=== PATIENT | male | born 1980 | race Caucasian/White ===

== ENCOUNTER 2016-04-24 11:56 | Inpatient (IN) | payer BC, OTHER ==
[~2016-04-24] VITALS: Ht 165.1 cm; Wt 91.0 kg
[2016-04-24] MEDS ORDERED: ONDANSETRON HCL 4 MG/2 ML VIAL ONE (13:04)
[2016-04-24] MEDS ORDERED: ONDANSETRON HCL 4 MG/2 ML VIAL IV ONE (13:30)
[2016-04-24] MEDS ORDERED: SODIUM CHLORIDE 0.9% 1,000 ML IVB ONE (13:34)
[2016-04-24 13:55] LABS: Basophils # (auto) 0 uL; Basophils % (auto) 0.1 % (0.0-2.0); Eosinophils # (auto) 0 uL; Eosinophils % (auto) 0.1 % (0.0-7.0); Hematocrit 42.7 % (41.0-53.0); Hemoglobin 13.7 g/dL (13.5-17.5); Lymphocytes # (auto) 0.9 uL; Lymphocytes % (auto) 5.5 % (10.0-50.0); Mean Corpuscular Hemoglobin 27.6 pg (28.0-32.0); Mean Corpuscular Hgb Conc. 32.2 g/dL (32.0-36.0); Mean Corpuscular Volume 85.7 fL (80.0-100.0); Monocytes # (auto) 0.6 uL; Monocytes % (auto) 3.5 % (0.0-12.0); Neutrophils # (auto) 15.2 uL; Neutrophils % (auto) 90.8 % (37.0-80.0); Platelet Count (auto) 337 10^3/uL (140-450); White Blood Cell 16.8 10^3/uL (4.4-10.8)
[2016-04-24] MEDS ORDERED: DIVA250T51 PO (14:04)
[2016-04-24] MEDS ORDERED: FLUO60TA PO (14:05)
[2016-04-24] MEDS ORDERED: PRE5T PO (14:05)
[2016-04-24] MEDS ORDERED: LOR05T PO (14:06)
[2016-04-24] MEDS ORDERED: ROPI1TAB22 PO (14:07)
[2016-04-24] MEDS ORDERED: GABA300C8 PO (14:07)
[2016-04-24] MEDS ORDERED: ATOR40TA52 PO (14:08)
[2016-04-24] MEDS ORDERED: BACL10TA PO (14:09)
[2016-04-24] MEDS ORDERED: INSU1INJ14 SC (14:10)
[2016-04-24] MEDS ORDERED: INSLISPI SC (14:10)
[2016-04-24 14:25] LABS: Albumin 3.7 g/dL (3.4-5.0); BUN/Creatinine Ratio 17.1; Bilirubin, Total 0.3 mg/dL (0.2-1.0); Calcium 8.6 mg/dL (8.5-10.1); Potassium 4.4 mmol/L (3.5-5.1); Total Protein 7.4 g/dL (6.4-8.2)
[2016-04-24] MEDS ORDERED: LACTULOSE 20Gm/30ML SOLN PO PRN (16:30)
[2016-04-24] MEDS ORDERED: ACETAMINOPHEN 500 MG TAB PO PRN (16:30)
[2016-04-24] MEDS ORDERED: TEMAZEPAM 15 MG CAP PO PRN (16:30)
[2016-04-24] MEDS ORDERED: LORazepam 0.5 MG TAB PO PRN ×2 (16:30→17:00)
[2016-04-24] MEDS ORDERED: DEXTROSE (50%) 50ML SYRG IV PRN (16:30)
[2016-04-24] MEDS ORDERED: NITROGLYCERIN 0.4 MG SL TAB SL PRN (16:30)
[2016-04-24] MEDS ORDERED: MORPHINE SULF INJ 2 MG/ML SYRINGE 1ML IV PRN ×2 (16:30)
[2016-04-24] MEDS ORDERED: PROMETHAZINE HCL 25 MG/ML 1ML IV PRN (16:30)
[2016-04-24] MEDS ORDERED: LORazepam 2MG/ML-1ML VIAL IV PRN (16:30)
[2016-04-24] MEDS ORDERED: ALBUTEROL SULF 2.5 MG/0.5ML(0.5%) NEB SOLN NEB PRN (17:00)
[2016-04-24] MEDS ORDERED: LEVOFLOXACIN 500MG 100 ML IV ONE (17:00)
[2016-04-24] MEDS ORDERED: BACLOFEN 10 MG TAB PO PRN (17:00)
[2016-04-24] MEDS: ACCU-CHEK COMFORT CURVE STRIP VI SCH ×2 (17:27→22:00)
[2016-04-24] MEDS: InsuLIN REG 1unit/0.01ml Soln (100units/ml) SC SCH ×2 (17:27→22:00)
[2016-04-24] MEDS: SODIUM CHLORIDE 0.9% 1,000 ML IV SCH (17:30)
[2016-04-24] MEDS ORDERED: ROPINIROLE 1 MG PO SCH (18:00)
[2016-04-24] MEDS: ALBUTEROL SULF 2.5 MG/0.5ML(0.5%) NEB SOLN NEB SCH (19:50)
[2016-04-24] MEDS: HYDROcodone-ACET 5/325MG TAB PO PRN ×2 (19:58→20:01)
[2016-04-24 22:00] VITALS: BP 113/60
[2016-04-24] MEDS ORDERED: ATORVASTATIN 20 MG TAB PO SCH (22:00)
[2016-04-24] MEDS ORDERED: PRAMIPEXOLE DIHYDROCHLORIDE MO 0.25 MG TAB PO SCH (22:00)
[2016-04-24 22:33] VITALS: BP 121/81
[2016-04-24] MEDS: GABAPENTIN 300 MG CAP PO SCH (22:39)
[2016-04-25] MEDS: ALBUTEROL SULF 2.5 MG/0.5ML(0.5%) NEB SOLN NEB SCH ×3 (00:13→11:31)
[2016-04-25 00:25] VITALS: BP 121/81
[2016-04-25] MEDS ORDERED: VARD10TA PO (01:56)
[2016-04-25] MEDS ORDERED: DIVA500T59 PO (01:56)
[2016-04-25 04:30] VITALS: BP 109/46
[2016-04-25 05:58] LABS: Basophils # (auto) 0 uL; Basophils % (auto) 0.2 % (0.0-2.0); Eosinophils # (auto) 0 uL; Eosinophils % (auto) 0.1 % (0.0-7.0); Hematocrit 35.9 % (41.0-53.0); Hemoglobin 11.9 g/dL (13.5-17.5); Lymphocytes # (auto) 1.8 uL; Lymphocytes % (auto) 13.8 % (10.0-50.0); Mean Corpuscular Hemoglobin 28.2 pg (28.0-32.0); Mean Corpuscular Hgb Conc. 33.1 g/dL (32.0-36.0); Mean Corpuscular Volume 85.3 fL (80.0-100.0); Mean Platelet Volume 7.7 fL (7.4-10.4); Monocytes # (auto) 0.6 uL; Monocytes % (auto) 4.9 % (0.0-12.0); Neutrophils # (auto) 10.5 uL; Platelet Count (auto) 302 10^3/uL (140-450); Red Cell Distribution Width 12.9 % (11.6-16.0)
[2016-04-25 06:26] LABS: Cholesterol 164 mg/dL (<200); HDL Cholesterol 68 mg/dL (40-59); LDL Cholesterol 102 mg/dL (<100); Triglycerides 58 mg/dL (<150)
[2016-04-25] MEDS: SODIUM CHLORIDE 0.9% 1,000 ML IV SCH (06:27)
[2016-04-25] MEDS: ACCU-CHEK COMFORT CURVE STRIP VI SCH ×2 (06:28→11:26)
[2016-04-25] MEDS: InsuLIN REG 1unit/0.01ml Soln (100units/ml) SC SCH ×2 (06:28→11:28)
[2016-04-25] MEDS ORDERED: PNEUMOCOCCAL VACC POLYS 25 MCG/0.5 ML VIAL IM ONE (07:00)
[2016-04-25 09:00] VITALS: BP 91/44
[2016-04-25] MEDS ORDERED: cefTRIAXone 1GM/50ML D5W 50 ML IV SCH (09:00)
[2016-04-25] MEDS ORDERED: AZITHROMYCIN 500MG/D5W 250ML 250 ML IV SCH (10:00)
[2016-04-25] MEDS ORDERED: FLUoxetine HCL 20 MG CAP PO SCH (10:00)
[2016-04-25] MEDS: GABAPENTIN 300 MG CAP PO SCH (10:11)
[2016-04-25 12:00] VITALS: BP 103/56
[2016-04-25 12:21] VITALS: BP 103/56
== END 2016-04-25 14:38 | disposition home or self-care (01) | DRG 637 ==
LOC: EDUNIT# 11:56 → ER 12:14 → TELE 12:15 → TELE-WESTW 21:43
PROVIDERS: ADMIT Internal Medicine; ATTEND Internal Medicine Geriatric Medicine
DX: E10.649 Type 1 diabetes mellitus with hypoglycemia without coma (principal); J18.9 Pneumonia, unspecified organism; G93.41 Metabolic encephalopathy; G40.401 Other generalized epilepsy and epileptic syndromes, not intractable, with status epilepticus; G47.33 Obstructive sleep apnea (adult) (pediatric); D72.829 Elevated white blood cell count, unspecified; E78.5 Hyperlipidemia, unspecified; F41.9 Anxiety disorder, unspecified; F31.9 Bipolar disorder, unspecified; G25.81 Restless legs syndrome; E10.42 Type 1 diabetes mellitus with diabetic polyneuropathy; Z79.4 Long term (current) use of insulin; Z23 Encounter for immunization
CPT/HCPCS: 36415; 70450; 71010; 80053; 80061; 80320; 82962; 83036; 83605; 85025; 85049; 85652; 87040; 94640; 94660; 94761; 96361; 96365; 96375; J0696; J1815; J1956; J2405